=== PATIENT | male | born 1950 | race Caucasian/White ===

== ENCOUNTER 2017-06-08 06:54 | Emergency (ER) | payer MEDICARE ==
[2017-06-08 07:59] LABS: ADD MAN DIFF? NO
[2017-06-08 08:02] LABS: BASO % 1 % (0-3); EOS # 0.1 x10^3/uL (0.0-0.7); EOS % 1 % (0-3); HEMATOCRIT 44.2 % (39.0-53.0); HEMOGLOBIN 14.9 g/dL (13.0-17.5); LYMPH # 0.9 x10^3/uL (1.0-4.8); LYMPH % 11 % (24-48); MEAN CORPUSCULAR HEMOGLOBIN 29 pg (25-35); MEAN CORPUSCULAR HGB CONC 34 g/dL (31-37); MEAN CORPUSCULAR VOLUME 85 fL (79-100); MONO # 0.6 x10^3/uL (0.0-1.1); MONO % 8 % (0-9); NEUT # 6.3 x10^3uL (1.8-7.7); NEUT % 80 % (31-73); PLATELET COUNT 179 x10^3/uL (140-400); RED BLOOD COUNT 5.21 x10^6/uL (4.30-5.70); RED CELL DISTRIBUTION WIDTH 13.6 % (11.5-14.5); WHITE BLOOD COUNT 7.8 x10^3/uL (4.0-11.0)
[2017-06-08 08:11] LABS: ANION GAP 6 (6-14); BLOOD UREA NITROGEN 13 mg/dL (8-26); BUN/CREATININE RATIO 13 (6-20); CALCIUM 8.9 mg/dL (8.5-10.1); CARBON DIOXIDE 31 mmol/L (21-32); CHLORIDE 98 mmol/L (98-107); GFR 74.5; GLUCOSE 107 mg/dL (70-99); POTASSIUM 3.9 mmol/L (3.5-5.1); SODIUM 135 mmol/L (136-145)
[2017-06-08 08:15] LABS: ALBUMIN 3.5 g/dL (3.4-5.0); ALBUMIN/GLOBULIN RATIO 1.1 (1.0-1.7); ALK PHOS 78 U/L (46-116); ALT (SGPT) 23 U/L (16-63); AST (SGOT) 15 U/L (15-37); LIPASE 148 U/L (73-393); TOTAL BILIRUBIN 0.9 mg/dL (0.2-1.0); TOTAL PROTEIN 6.8 g/dL (6.4-8.2)
[2017-06-08] MEDS: ONDANSETRON PF 4 MG/2 ML VIAL. IV (08:33)
[2017-06-08] MEDS: KETOROLAC 30 MG/ML INJ. IV (08:36)
[2017-06-08] MEDS: MORPHINE SULFATE 4 MG/ML DISP.SYRIN. IV (08:39)
[2017-06-08 09:05] LABS: BILIRUBIN,URINE NEGATIVE (NEG); CLARITY,URINE CLEAR; COLOR,URINE YELLOW; GLUCOSE,URINE NEGATIVE (NEG); NITRITE,URINE NEGATIVE (NEG); PROTEIN,URINE NEGATIVE (NEG-TRACE)
[2017-06-08 09:15] LABS: RBC,URINE 0 /HPF (0-2); WBC,URINE 0 /HPF (0-4)
[2017-06-08 09:16] LABS: BACTERIA,URINE 0 /HPF (0-FEW); SQUAMOUS EPITHELIAL CELL,UR FEW /LPF
== END 2017-06-08 10:08 | disposition home or self-care (01) ==
LOC: ER 06:54
DX: R10.30 Lower abdominal pain, unspecified (principal); M54.9 Dorsalgia, unspecified; I10 Essential (primary) hypertension
CPT/HCPCS: 36415; 74176; 80053; 81001; 83690; 85025; 96374; 96375; 99285-25; J1885; J2270; J2405

== ENCOUNTER → 2017-07-15 | Outpatient (CLI) | payer MEDICARE ==
[~2017-07-15] MED LIST: IOHEXOL 180 MG/ML 10 ML VIAL.; methylPREDNISolone ACETATE 40 MG/ML VIAL.; methylPREDNISolone ACETATE 80 MG/ML VIAL.
== END | disposition home or self-care (01) ==
LOC: PNCL 08:27
DX: M51.16 Intervertebral disc disorders with radiculopathy, lumbar region (principal); I10 Essential (primary) hypertension; M19.90 Unspecified osteoarthritis, unspecified site; H91.93 Unspecified hearing loss, bilateral; Z98.890 Other specified postprocedural states; Z79.899 Other long term (current) drug therapy; Z88.5 Allergy status to narcotic agent; Z82.49 Family history of ischemic heart disease and other diseases of the circulatory system; Z82.71 Family history of polycystic kidney
CPT/HCPCS: 62323; J1030; J1040; Q9965

== ENCOUNTER → 2018-06-08 | Outpatient (CLI) | payer MEDICARE ==
[2017-06-08 09:34] VITALS: BP 135/72
[~2018-06-08] MED LIST changes: +GABA-689 PO; +HYDR-3164 PO; -IOHEXOL 180 MG/ML 10 ML VIAL.; +IOHEXOL 180 MG/ML 10 ML VIAL. ONE; +LEVO100T5 PO; +LISI1TAB5 PO; +PROP80CA3 PO; +TIZA4TAB PO; +TRAM50TA PO; +UNABLE MC; +VENL75TA PO; -methylPREDNISolone ACETATE 40 MG/ML VIAL.; +methylPREDNISolone ACETATE 40 MG/ML VIAL. ONE; -methylPREDNISolone ACETATE 80 MG/ML VIAL.; +methylPREDNISolone ACETATE 80 MG/ML VIAL. ONE
--- NOTE | 2018-06-09 00:31 | PAIN ---
DATE OF SERVICE: 06/08/2018 PROGRESS NOTE FOR PAIN CLINIC DIAGNOSES: Lumbar radiculopathy with lumbar degenerative disk disease and lumbar herniated disk. HISTORY OF PRESENT ILLNESS: The patient is a 67-year-old male who returns for followup, last seen on 07/15/2017. The patient had one lumbar epidural steroid injection. He did very well, near 100% improvement after the injection. Pain returned now over the past one month or so in the low back and right lower extremity, now it is in the right side. Initially, it was on the left side. It was across the low back and right posterior gluteus, posterior thigh, posterior calf, posterior ankle and into the foot at times. He reports it is worse with walking, standing or changing positions; better with sitting or lying down. It does not awaken him from sleep at night. Initially, he was increasing his activity, walking, doing work activities, household activities and travelling with greater ease and comfort. Now the pain over the past month has returned, but on the right side is worse than the left. The patient reports it is aching and stabbing, becoming more constant, rates it an 8 on a scale of 10 at its worst, 7 on average and 4 at its least. We did review the patient's MRI scan with him today, showing at L5-S1, moderate left and svsmiolm-vw-hudxxd right foraminal narrowing identified at that level. The patient reports no new changes, no new bowel or bladder incontinence or other complaints. PHYSICAL EXAMINATION: VITAL SIGNS: The patient's blood pressure is 165/94, pulse is 87, respirations 18 and temperature is 97.7 degrees Fahrenheit. Height is 5 feet 11 inches, weighs 220 pounds. GENERAL: The patient is awake, alert, oriented, appropriate, very pleasant demeanor. HEENT EXAMINATION: Shows normocephalic, atraumatic. Extraocular movements are intact and symmetrical. Oral cavity, mucous membranes are moist and pink. Dentition is intact. NECK: Shows anterior throat supple, without palpable lymphadenopathy noted. Swallow reflex is symmetrical. CHEST: Shows normal on inspection. Breath sounds are clear to auscultation bilaterally. HEART: Shows S1, S2 clear. No murmurs auscultated. ABDOMEN: Soft, nontender and nondistended. No palpable organomegaly is noted. No rebound or guarding demonstrated. BACK: Shows spine grossly in the midline. Normal-appearing thoracic kyphosis and some mild flattening of the lumbar lordotic curvature. Lumbar paraspinous muscle shows symmetrical on inspection. On palpation, there is some moderate tenderness diffusely, but only diffusely without radiation. EXTREMITIES: The patient's lower extremities show deep tendon reflexes at 2+ in the patellar and 1+ tendo calcaneus tendons. Motor exam is grossly 5/5 bilaterally with dorsiflexion, extension, quadriceps and hamstring flexion. Peripheral pulses are 1+ posterior tibia. No peripheral edema is noted bilaterally. Options were discussed with the patient. The patient's old chart was reviewed as was his current medication regimen updated. Current review of systems updated today as well. We will proceed with a lumbar epidural steroid injection; today is the first in this series. Risks were again discussed including, but not limited to bleeding, infection, possibility of epidural hematoma, subsequent neurologic compromise, dural puncture, headaches, spinal cord and/or nerve damage, side effects of steroid medication and poor results regarding pain control. The patient understands and wishes to proceed. The patient to return to clinic in approximately 2 weeks for followup. He was counseled on his return appointment, activity level and side effects to be aware of. DIAGNOSES: Lumbar radiculopathy with lumbar degenerative disk disease. PROCEDURE: Lumbar epidural steroid injection in translaminar approach at L5-S1 level using C-arm fluoroscopic guidance under sterile prep and drape using local anesthetic. MEDICATIONS INJECTED: A total of 120 mg Depo-Medrol plus 10 mL of preservative-free normal saline and 2 mL of contrast. CONDITION AT DISCHARGE: Stable. The patient tolerated the procedure well, had no complications. ALBER PALMA MD DR: NEWTON/ezekiel JOB#: [id number] / [id number]
== END | disposition home or self-care (01) ==
LOC: PNCL 11:20
PROVIDERS: ATTEND Anesthesiology
DX: M51.16 Intervertebral disc disorders with radiculopathy, lumbar region (principal)
CPT/HCPCS: 62323; J1030; J1040; Q9965

== ENCOUNTER → 2018-11-08 | Outpatient (CLI) | payer MEDICARE ==
[2017-06-08 09:34] VITALS: BP 135/72
[~2018-11-08] MED LIST changes: +LISI1TAB19 PO; -LISI1TAB5 PO; -TIZA4TAB PO; +TIZA4TAB2 PO
--- NOTE | 2018-11-08 09:29 | PAIN ---
DATE OF SERVICE: 11/08/2018 PROGRESS NOTE FOR PAIN CLINIC DIAGNOSES: Lumbar radiculopathy with lumbar degenerative disk disease and lumbar herniated disk. HISTORY OF PRESENT ILLNESS: The patient is a 68-year-old male who returns for followup status post lumbar epidural steroid injection x 1 on 06/08/2018. The patient did very well with this with about 100% improvement, now about 90% improved and the pain is returning now in the low back and into the right greater than left lower extremity. The patient reports it has been coming back slowly still with some very good pain relief. The patient reports that his legs are becoming more fatigued with activity, walking and standing. Initially, he was doing increased distance walking, work activities, household activities, sleeping much better. Still does not awaken him from sleep at night. The patient reports it is an aching pain in the low back radiating to posterior gluteus, posterior thigh on the right side, posterior calf, some on the left, but mostly in the low back. The patient reports the leg pain comes and goes and the back pain is fairly constant. The patient reports it is aching, dull, some shooting pain in the leg as well. The patient reports his pain in the last week at its worst, is an 8 on a scale of 10, 7 on average and 4 at its least and is a 4 today. The patient reports no new motor or sensory deficits, no new bowel or bladder incontinence or other complaints. PHYSICAL EXAMINATION: VITAL SIGNS: The patient's blood pressure 134/77, pulse 55, respirations are 16, temperature 98.4 degrees Fahrenheit, height is 5 feet 11 inches, weight is 226 pounds. GENERAL: The patient is awake, alert, oriented, appropriate, very pleasant demeanor. HEENT: Head shows normocephalic, atraumatic. Extraocular movements are intact and symmetrical. Oral cavity, mucous membranes are moist and pink. Dentition is intact. NECK: Shows anterior throat supple without palpable lymphadenopathy noted. Swallow reflex symmetrical. CHEST: Shows normal on inspection. Breath sounds clear to auscultation bilaterally. HEART: Shows S1, S2 clear. No murmurs auscultated. ABDOMEN: Soft, nontender, nondistended. No palpable organomegaly is noted. No rebound or guarding demonstrated. BACK: Shows spine grossly in the midline. Normal appearing thoracic kyphosis, some minor flattening of lumbar lordotic curvature. Lumbar paraspinous muscle shows symmetrical on inspection, with palpation shows some moderate tenderness diffusely, but only in the low lumbar distribution, but only diffusely. The patient has good rotational motion of lumbar spine, both laterally as well as extension and flexion without exacerbation of pain. EXTREMITIES: Lower extremities show deep tendon reflexes at 2+ in the patellar, 1+ tendo-calcaneus tendons are equal. Motor exam is strong with 5/5 dorsiflexion and extension and symmetrical. Peripheral pulses are 1+ posterior tibia. No peripheral edema is noted bilaterally. Options were discussed with the patient. The patient's old chart was reviewed as his current medication regimen updated. Current review of systems updated today as well. We will proceed with a lumbar epidural steroid injection today with fluoroscopic guidance. Risks were again discussed including, but not limited to bleeding, infection, possibility of epidural hematoma and subsequent neurological compromise, dural puncture, headaches, spinal cord and/or nerve damage, side effects of steroid medication and poor results regarding pain control. The patient understands and wished to proceed. The patient will return to clinic in approximately 2 weeks for followup. He was counseled on return appointment, activity level and side effects to be aware of. DIAGNOSES: Lumbar radiculopathy with lumbar degenerative disk disease and lumbar herniated disk. PROCEDURE: Lumbar epidural steroid injection, translaminar approach L5-S1 level using C-arm fluoroscopic guidance under sterile prep and drape using local anesthetic. MEDICATION INJECTED: A total of 120 mg Depo-Medrol plus 10 mL of preservative-free normal saline and 2 mL of contrast. CONDITION AT DISCHARGE: Stable. The patient tolerated procedure well, had no complications. ALBER PALMA MD DR: NEWTON/ezekiel JOB#: [id number] / [id number]
== END ==
LOC: PNCL 08:00
PROVIDERS: ATTEND Anesthesiology
DX: M51.16 Intervertebral disc disorders with radiculopathy, lumbar region (principal)
CPT/HCPCS: 62323; J1030; J1040; Q9965

== ENCOUNTER → 2018-11-22 | Outpatient (CLI) | payer MEDICARE ==
[2017-06-08 09:34] VITALS: BP 135/72
--- NOTE | 2018-11-22 09:06 | PAIN ---
DATE OF SERVICE: 11/22/2018 PROGRESS NOTE FOR PAIN CLINIC DIAGNOSES: Lumbar radiculopathy with lumbar degenerative disk disease and lumbar herniated disk. HISTORY OF PRESENT ILLNESS: The patient is a 68-year-old male who returns for followup status post lumbar epidural steroid injection x 2, most recently 11/08/2018. The patient did very well for about 50% improvement overall. First injection about 90% improved, but still doing quite well. The patient reports the pain is still subsiding in the low back, but is still in the bilateral lower extremities, posterior gluteus, posterior thighs, posterior calves, right equal to left essentially at this time, slightly more on the right at times, but most times equal. The patient reports it is better with sitting, lying down, does not awaken him from sleep at night. He was initially increasing distance walking, doing work activities, household activities, lifting his legs are much greater ease and comfort. The patient reports now the pain is returning, but still under fairly good control. Describes as aching, radiating, sometimes constant with walking and standing. The patient reports the pain is 7 on a scale of 10 at its worst, in the past week 5 on average and 3 at its least, and is a 3 today. The patient reports no new motor or sensory deficits, no new bowel or bladder incontinence, or other complaints. PHYSICAL EXAMINATION: VITAL SIGNS: The patient's blood pressure 133/83, pulse 50, respirations 16, temperature 97.5 degrees Fahrenheit, height is 5 feet 11 inches and weight is 218 pounds. GENERAL: The patient is awake, alert, oriented, appropriate, very pleasant demeanor. HEENT: Head shows normocephalic, atraumatic. Extraocular movements are intact and symmetrical. Oral cavity: Mucous membranes are moist and pink. Dentition is intact. NECK: Shows anterior throat supple without palpable lymphadenopathy noted. Swallow reflex symmetrical. CHEST: Shows normal on inspection. Breath sounds are clear to auscultation bilaterally. HEART: Shows S1, S2 clear. No murmurs auscultated. ABDOMEN: Soft, nontender, nondistended. No palpable organomegaly is noted. No rebound or guarding demonstrated. BACK: Shows spine grossly in the midline. Normal-appearing thoracic kyphosis and lumbar lordotic curvature. Lumbar paraspinous muscle shows symmetrical on inspection, on palpation shows some moderate tenderness diffusely, but only diffusely without radiation. The patient has good rotational motion of lumbar spine, both laterally as well as extension and flexion without significant difficulty. EXTREMITIES: The patient's lower extremities show deep tendon reflexes 2+ in the patellar, 1+ tendo-calcaneus tendons. Motor exam is strong with 5/5 dorsiflexion, extension, quadriceps, and hamstring flexion equal. Peripheral pulses are 1+ posterior tibia. No peripheral edema is noted. Options were discussed with the patient. The patient's old chart was reviewed as his current medication regimen updated. Current review of systems updated today as well. We will proceed with a third in the series of lumbar epidural steroid injection today with fluoroscopic guidance. Risks were again discussed including, but not limited to bleeding, infection, possibility of epidural hematoma, subsequent neurologic compromise, dural puncture, headaches, spinal cord and/or nerve damage, side effects of steroid medication, and poor results regarding pain control. The patient understands and wished to proceed. The patient will return to clinic in approximately 2 weeks for followup. He was counseled on return appointment, activity level, and side effects to be aware of. DIAGNOSIS: Lumbar radiculopathy with lumbar degenerative disk disease and lumbar herniated disk. PROCEDURE: Lumbar epidural steroid injection, translaminar approach L5-S1 level using C-arm fluoroscopic guidance under sterile prep and drape using local anesthetic. MEDICATION INJECTED: A total of 120 mg Depo-Medrol plus 10 mL of preservative-free normal saline and 2 mL of contrast. CONDITION AT DISCHARGE: Stable. The patient tolerated the procedure well, had no complications. ALBER PALMA MD DR: NEWTON/ezekiel JOB#: [id number] / [id number]
== END ==
LOC: PNCL 08:15
PROVIDERS: ATTEND Anesthesiology
DX: M51.16 Intervertebral disc disorders with radiculopathy, lumbar region (principal)
CPT/HCPCS: 62323; J1030; J1040; Q9965

== ENCOUNTER → 2019-01-22 | Day surgery (SDC) | payer MEDICARE ==
[~2019-01-22] MED LIST changes: -IOHEXOL 180 MG/ML 10 ML VIAL. ONE; +IV RINGERS,LACTATED 1000ML 1,000 ML IV SCH; +LIDOCAINE 2% PF 5 ML VIAL. ONE; +PROPOFOL 20 ML IV ONE; +VARD20TA2 PO; -methylPREDNISolone ACETATE 40 MG/ML VIAL. ONE; -methylPREDNISolone ACETATE 80 MG/ML VIAL. ONE
--- NOTE | 2019-01-22 14:12 | PDOC4 ---
PROCEDURE Procedure Colonoscopy/biopsy Indication: H/o polyps, FH CRC in first-degree relative. Meds: per anesthesia Findings: FIGUEROA; smooth, enlarged prostate. --'Scope advanced to cecum. Prep good. Mucosa normal. 3 x 5 mm polyp ~mid- transverse, biopsied off. No other polyps, diverticula, etc. IH's on retroflex, small. Briseyda. well. IMP: One polyp. Internal hemorrhoids. REC: Await path. Resume meds, diet at before. F/u with me in 2 weeks. Repeat exam in 5 years unless otherwise dictated by pathology. BERNADINE CLARK MD Jan 22, 2019 14:12
[2019-01-22 14:28] VITALS: BP 158/92
--- NOTE | 2019-01-23 14:06 | PATHOLOGY ---
[facility] Accession Number: [id number] . 01 Material submitted: . colon - POLYP IN TRANSVERSE COLON. Modifiers: transverse . 01 Clinical history: . History of colon polyps, family history of colon cancer . 02 Diagnosis: Colon biopsies, transverse colon polyp: - Tubular adenoma. (JPM:joby; 01/23/2019) S 01/23/2019 1250 Local . 02 Comment: There is no high grade dysplasia or evidence of malignancy. . 02 Electronically signed: . Flaco Navarro MD, Pathologist NPI- [id number] . 01 Gross description: . The specimen is received in formalin, labeled "Boris Veras, polyp in transverse colon", are four irregular segments of eason soft tissue measuring 0.7 x 0.5 x 0.1 cm in greatest dimension. Entirely submitted in A1. ([facility]; 01/22/2019) [facility] 01/22/2019 1943 Local . 02 Pathologist provided ICD-10: D12.3 . 02 CPT . 087090 Specimen Comment: A courtesy copy of this report has been sent to [phone], [phone] Specimen Comment: [id number] Specimen Comment: Report sent to / DR CALIXTO Specimen Comment: A duplicate report has been generated due to demographic updates. Performed at: 01 [facility] [address] [address] [facility] [address], [place] [id number] MD Jerzy Cruz MD Phone: [phone] Performed at: 02 [facility] [address] [place], [place] [id number] MD Flaco Navarro MD Phone: [phone]
== END ==
LOC: ENDOS 13:03
PROVIDERS: ATTEND Internal Medicine Gastroenterology
DX: Z12.11 Encounter for screening for malignant neoplasm of colon (principal); D12.3 Benign neoplasm of transverse colon; K64.0 First degree hemorrhoids; N40.0 Benign prostatic hyperplasia without lower urinary tract symptoms; I10 Essential (primary) hypertension; G47.30 Sleep apnea, unspecified; F32.9 Major depressive disorder, single episode, unspecified; M79.7 Fibromyalgia; Z80.0 Family history of malignant neoplasm of digestive organs; Z86.010 Personal history of colon polyps; Z88.6 Allergy status to analgesic agent; Z87.39 Personal history of other diseases of the musculoskeletal system and connective tissue; Z98.52 Vasectomy status; Z98.890 Other specified postprocedural states
CPT/HCPCS: 45380; 88305; J2001; J2704

== ENCOUNTER → 2019-05-03 | Outpatient (CLI) | payer MEDICARE ==
[2019-01-22 14:28] VITALS: BP 158/92
[~2019-05-03] MED LIST changes: +IOHEXOL 180 MG/ML 10 ML VIAL. ONE; -IV RINGERS,LACTATED 1000ML 1,000 ML IV SCH; -LIDOCAINE 2% PF 5 ML VIAL. ONE; -PROPOFOL 20 ML IV ONE; +methylPREDNISolone ACETATE 40 MG/ML VIAL. ONE; +methylPREDNISolone ACETATE 80 MG/ML VIAL. ONE
--- NOTE | 2019-05-03 09:14 | PAIN ---
DATE OF SERVICE: 05/03/2019 PROGRESS NOTE FOR PAIN CLINIC DIAGNOSES: Lumbar radiculopathy with lumbar degenerative disk disease with lumbar herniated disk. HISTORY OF PRESENT ILLNESS: The patient is a 68-year-old male who returns for followup status post previous lumbar epidural steroid injections, last seen 11/22/2018. The patient did very well after the last injection with about 90% improvement for the first 2 months. The patient reports pain is returning now in the low back and right lower extremity, posterior gluteus, posterior thigh, posterior calf, worse with walking, standing, changing positions. The patient reports about 3-4 months has been bothering him, but no motor or sensory deficits, no new bowel or bladder incontinence. The patient rates the pain as a 9 on a scale of 10 at its worst over the past week, 8 on average, 6 at its least and is an 8 today across the low back bilaterally into the right lower extremity as described. The patient reports it is worse with standing, walking, changing positions. Initially, he was doing much better with distance walking, doing household activities, traveling with greater ease and comfort, sleeping better. Still sleeps well at night, does not have as much pain with sitting or lying down as just with walking and standing. The patient reports no new motor or sensory deficits, no new bowel or bladder incontinence. PHYSICAL EXAMINATION: VITAL SIGNS: The patient's blood pressure 139/83, pulse 53, respirations 18, temperature 97.3 degrees Fahrenheit, height is 5 feet 11 inches, weight is 226 pounds. GENERAL: The patient is awake, alert, oriented, appropriate, very pleasant demeanor. HEENT: Head shows normocephalic, atraumatic. Extraocular movements are intact and symmetrical. Oral cavity: Mucous membranes moist and pink. Dentition is intact. NECK: Shows anterior throat supple without palpable lymphadenopathy noted. Swallow reflex symmetrical. CHEST: Shows normal on inspection. Breath sounds are clear bilaterally. HEART: Shows S1, S2 clear. No murmurs auscultated. ABDOMEN: Soft, nontender, nondistended. No palpable organomegaly is noted. No rebound or guarding demonstrated. BACK: Shows spine grossly in the midline. Normal-appearing, no thoracic kyphosis, some minor flattening of lumbar lordotic curvature. Lumbar paraspinous muscle shows symmetrical on inspection, with palpation shows some moderate tenderness diffusely bilaterally going diffusely in the low lumbar distribution bilaterally without radiation, no trigger points, no asymmetry. The patient has good rotational motion of lumbar spine, both laterally as well as extension and flexion without significant increase in pain. EXTREMITIES: Lower extremities show deep tendon reflexes at 2+ in the patellar, 1+ tendo-calcaneus tendons. Motor exam is strong with 5/5 dorsiflexion, extension, quadriceps and hamstring flexion. Peripheral pulses are 1+ posterior tibia. No peripheral edema is noted bilaterally. Options were discussed with the patient. The patient's old chart was reviewed as his current medication regimen updated. Current review of systems updated today as well. We will proceed with a lumbar epidural steroid injection today with fluoroscopic guidance. Risks were again discussed including, but not limited to bleeding, infection, possibility of epidural hematoma, subsequent neurological compromise, dural puncture, headaches, spinal cord and/or nerve damage, side effects of steroid medication and poor results regarding pain control. The patient understands and wished to proceed. The patient will return to clinic in approximately 2 weeks for followup. She was counseled on return appointment, activity level and side effects to be aware of. DIAGNOSES: Lumbar radiculopathy with lumbar degenerative disk disease with lumbar herniated disk. PROCEDURE: Lumbar epidural steroid injection, translaminar approach L5-S1 level using C-arm fluoroscopic guidance under sterile prep and drape using local anesthetic. MEDICATION INJECTED: A total of 120 mg Depo-Medrol plus 10 mL of preservative-free normal saline and 2 mL of contrast. CONDITION AT DISCHARGE: Stable. The patient tolerated the procedure well, had no complications. ALBER PALMA MD DR: NEWTON/ezekiel JOB#: [id number] / [id number]
== END ==
LOC: PNCL 07:44
PROVIDERS: ATTEND Anesthesiology
DX: M51.16 Intervertebral disc disorders with radiculopathy, lumbar region (principal)
CPT/HCPCS: 62323; J1030; J1040; Q9965

== ENCOUNTER → 2019-06-29 | Outpatient (CLI) | payer MEDICARE ==
[2019-01-22 14:28] VITALS: BP 158/92
[~2019-06-29] MED LIST changes: -IOHEXOL 180 MG/ML 10 ML VIAL. ONE; -methylPREDNISolone ACETATE 40 MG/ML VIAL. ONE; -methylPREDNISolone ACETATE 80 MG/ML VIAL. ONE
[2019-06-29] MEDS: REGADENOSON 0.4 MG/5 ML DISP.SYRIN. IV ONE (10:08)
--- NOTE | 2019-06-29 12:10 | RAD ---
MR#: [id number] Date of Study: 06/29/2019 Ordering Physician: BERNADINE CALIXTO, Referring Physician: ZOË SAENZ Tech: KYRIE Mccollum APPROVED REPORT Test Type: Pharmacological Stress Nurse/Tech: Lindsey Pederson RN Test Indications: Chest pressure (midline) Cardiac History: Family history, Hypertension Medications: See Electronic Medical Record Medical History: See Electronic Medical Record Resting ECG: SR Resting Heart Rate: 66 bpm Resting Blood Pressure: 154/69mmHg Pretest Chest Pain: Atypical angina Nurse/Tech Notes S1,S2 and lungs clear to auscultation. Patient states he has been having chest pressure in the center of his chest off and on. Patient attempted a treadmill stress test and was unable to keep going shashi use of the incline (Heart rate didn't reach desired max). Patient switched to Lexiscan test. Consent: The procedure was explained to the patient in lay terms. Informed consent was witnessed. Moncho eout was entered into [email or web address]. History and Stress Test performed by KYRIE Mccollum Pharm. Details Pharmacologic stress testing was performed using 0.4mg per 5ml of regadenoson given intravenously ove r 7-10 seconds. Stress Symptoms Patient stated he had 5/10 chest pressure at the start of the stress test/Lexiscan. Pressure came do wn slightly to a 4/10 by end of study. Dyspnea. POST EXERCISE Reason for Termination: Infusion complete Target HR: No Max HR: 79 bpm 62% of Maximum Predicted HR: 127 bpm Max Blood Pressure: 152/65mmHg Blood Pressure response to exercise: Normal blood pressure response during stress. Heart Rate response to exercise: WNL Chest Pain: Yes. see note above. Arrhythmia: No. ST Change: No. INTERPRETATION Stress EKG Conclusion: No evidence of stress induced EKG changes. Imaging Protocol IMAGE PROTOCOL: Rest Tc-99m/stress Tc-99m 1 day Rest: Stress: Viability: Radiopharm.Tc99m EoqtxnerdTm82b Sestamibi Dvpj49pSh 33mCi Duration 15min. 10min. Img Date 06/29/2019 06/29/2019 Rest Admin Site:IV - Left AntecubitalAdministrator:KYRIE Mccollum Stress Admin Site: IV - Left AntecubitalAdministrator: KYRIE Mccollum STRESS DATA End Diast. Vol.113.0mlAv. Heart Rate60.0bpm End Syst. Vol.30.0mlCO Index BSA0.0L/min Myocardial Jjcx212.0gEject. Vjocmpgn94.0% Stress Rates Pk. Fill Rate2.76EDV/secLVtime Pk. Fill 184.38msec Pk. Empty Rate3.00ESV/secLVtime Pk. Eyxvv978.18msec 03/09 Pk. Fill1.41EDV/sec Stress Scores Regional WT0.00Summed WT0.00 Regional WM0.00Summed WM0.00 The rest and stress images show normal perfusion, normal contraction and thickening. LV Perf. Quant 17 Seg. SSS0.00 17 Seg. SRS1.00 17 Seg. SDS0.00 Stress Defect Extent (% LAD)0.00Rest Defect Extent (% LAD)0.00Rev. Defect Extent (% LAD)0.00 Stress Defect Extent (% LCX) 0.00Rest Defect Extent (% LCX)0.00Rev. Defect Extent (% LCX)0.00 Stress Defect Extent (% RCA)0.00Rest Defect Extent (% RCA)0.00Rev. Defect Extent (% RCA)0.00 Stress Defect Extent (% NHUNG)0.00Rest Defect Extent (% NHUNG)0.00Rev. Defect Extent (% NHUNG)0.00 Other Information Quality:Good Risk Assessment: Low Risk Conclusion 1. No evidence of EKG changes with stress testing. 2. Normal perfusion at stress/rest. 3. Low risk study. 4. EF > 60%. Signed by : Chidi Le, Electronically Approved : 06/29/2019 12:09:52
== END | disposition home or self-care (01) ==
LOC: NM 07:39
PROVIDERS: ATTEND Internal Medicine
DX: R07.89 Other chest pain (principal); I10 Essential (primary) hypertension
CPT/HCPCS: 78452; 93017; A9500; J2785

== ENCOUNTER → 2019-12-03 | Outpatient (CLI) | payer MEDICARE ==
[2019-01-22 14:28] VITALS: BP 158/92
[~2019-12-03] MED LIST changes: +AMLO5TAB10 PO; +IOHEXOL 180 MG/ML 10 ML VIAL. ONE; -LISI1TAB19 PO; +LISI1TAB37 PO; +PANT40TA77 PO; +methylPREDNISolone ACETATE 40 MG/ML VIAL. ONE; +methylPREDNISolone ACETATE 80 MG/ML VIAL. ONE
--- NOTE | 2019-12-03 09:03 | PDOC ---
Progress Note - Pain Clinic Date of Service: DOS: DATE: 12/03/19 TIME: 09:00 Diagnosis: Dx: Lumbar radiculopathy with lumbar degenerative disc disease and lumbar herniated disc History or Present Illness: HPI: 69-year-old male returns follow-up status post lumbar epidural steroid injection x1 last seen May 03, 2019. Patient works very well at this 90% improvement now with pain returning over the past few weeks in the low back and right lower extremity posterior gluteus posterior thigh posterior calf to the level of the ankle patient reports no loss of motor function but significant fatigability with right lower extremity. Patient reports is a 9 on scale 10 is worse with the past week 7 on average for its least is a 7 today patient which is aching and sharp in quality constant in the back and the radiating to the leg on and off in intensity patient reports no new motor or sensory deficits no new bowel or bladder incontinence or other complaints. Physical Exam: VS: Blood pressure is 146/78 pulse 61 respirations 18 temperature 90.1 F height is 5 foot 11 inches weight is 217 pounds PE: PHYSICAL EXAMINATION: GENERAL: The patient is awake, alert, oriented, appropriate, very pleasant demeanor HEENT: Shows normocephalic, atraumatic. Extraocular movements are intact and symmetrical. Oral cavity: Mucous membranes moist and pink. NECK: Shows anterior throat supple without palpable lymphadenopathy noted. Swallow reflex symmetrical. CHEST: Shows normal on inspection. Breath sounds are clear bilaterally, no rales rhonchi or wheezes auscultated. HEART: Shows S1, S2 clear. No murmurs auscultated. ABDOMEN: Soft, nontender, nondistended. No palpable organomegaly is noted. No rebound or guarding demonstrated. BACK: Shows spine grossly in the midline. Normal-appearing cervical lordotic curvature. There is slightly increased thoracic kyphosis, some minor flattening of the lumbar lordotic curvature. Lumbar paraspinous muscles show symmetrical on inspection, on palpation shows some moderate tenderness diffusely throughout the upper, middle and lower distribution of the paraspinous muscles bilaterally, but without specific trigger points, without radiation of pain. The patient has good rotational motion of the lumbar spine, both laterally as well as extension and flexion without significant difficulty. No tenderness over the spinous processes, sacrum or sacroiliac regions. EXTREMITIES: Lower extremities show deep tendon reflexes 2+ in the patellar and tendo calcaneus tendons. Motor exam is 5 on a scale of 5 with right dorsiflexion, extension, quadriceps and hamstring flexion and 5/5 on the left. Peripheral pulses are 1+ posterior tibial. No peripheral edema is noted bilaterally. Lower extremities are warm and dry to touch, equal in color and appearance. SKIN: Shows warm and dry, good turgor. No edema. No sores, rashes or bruising throughout. Procedure: Procedure: Options were discussed with the patient. Patient chart was reviewed his current medication regimen updated current review of systems updated today as well. We will proceed with a second in the series lumbar epidural steroid injection today with fluoroscopic guidance. Risks were discussed including but not limited to: Bleeding, infection, possibility of epidural hematoma and subsequent neurological compromise, dural puncture, headaches, spinal cord and/or nerve damage, side effects of steroid medication, and poor results regarding pain control. Patient understands wished to proceed. Patient return to clinic in approximate 2 weeks for follow-up was counseled as to return appointment activity level and side effects to be aware of. Medication Injected: Med Injected: Procedure is lumbar epidural steroid injection under local anesthetic using sterile prep and drape at the L5-S1 level using C-arm fluoroscopic guidance in both AP and lateral views medications injected is 120 mg Depo-Medrol + 10 mL preservative-free normal saline and 2 mL contrast- condition at discharge is stable patient tolerated procedure well had no complications. Condition at Discharge: Condition at Discharge: Condition at discharge is stable patient tolerated procedure well had no complications. ALBER PALMA MD Dec 03, 2019 09:03
== END | disposition home or self-care (01) ==
LOC: PNCL 08:16
PROVIDERS: ATTEND Anesthesiology
DX: M51.16 Intervertebral disc disorders with radiculopathy, lumbar region (principal); I10 Essential (primary) hypertension; F32.9 Major depressive disorder, single episode, unspecified; Z79.899 Other long term (current) drug therapy
CPT/HCPCS: 62323; J1030; J1040; Q9965

== ENCOUNTER → 2020-06-09 | Outpatient (CLI) | payer MEDICARE ==
[2019-01-22 14:28] VITALS: BP 158/92
[~2020-06-09] MED LIST changes: +AMLO-186 PO; -AMLO5TAB10 PO; +CHOL500050 PO; +MULT-245 PO; +NIAC500T51 PO; +OMEG100021 PO
--- NOTE | 2020-06-09 09:11 | PDOC ---
Progress Note - Pain Clinic Date of Service: DOS: DATE: 06/09/20 TIME: 09:08 Diagnosis: Dx: Lumbar to colopathy with lumbar degenerative disease and lumbar herniated disc History or Present Illness: HPI: 69-year-old male returns follow-up status post lumbar epidural steroid injection x2 most recently December 03, 2019. Patient with about 90% improvement in the pain in his low back and right lower extremity for about 5 months. Patient reports pain returning now over the past month or so in the low back and right lower extremity posterior gluteus posterior thigh posterior calf and ankle as well as across the low back bilaterally patient reports is an 8 on scale 10 is worse over the past week 8 on average 8 its least is an 8 today patient reports its aching and stabbing radiating before that was doing much better with distance walking doing household activities travel with greater ease and comfort sleeping better at night patient reports still is not awakening from sleep at night. Patient reports is worse with standing and walking changing positions. Patient reports no new motor or sensory deficits no new bowel or bladder incontinence or other complaints. Physical Exam: VS: Blood pressure is 137/88 pulse 63 respirations are 16 temperature 98.3 F height is 5 foot 11 inches weight is 224 pounds PE: PHYSICAL EXAMINATION: GENERAL: The patient is awake, alert, oriented, appropriate, very pleasant demeanor HEENT: Shows normocephalic, atraumatic. Extraocular movements are intact and symmetrical. Oral cavity: Mucous membranes moist and pink. NECK: Shows anterior throat supple without palpable lymphadenopathy noted. Swallow reflex symmetrical. CHEST: Shows normal on inspection. Breath sounds are clear bilaterally, no rales or rhonchi. HEART: Shows S1, S2 clear. No murmurs auscultated. ABDOMEN: Soft, nontender, nondistended, obese. No palpable organomegaly is noted. BACK: Shows spine grossly in the midline. Normal-appearing cervical lordotic curvature. There is slightly increased thoracic kyphosis, some minor flattening of the lumbar lordotic curvature. Lumbar paraspinous muscles show symmetrical on inspection, on palpation shows some moderate tenderness diffusely throughout the upper, middle and lower distribution of the paraspinous muscles without specific trigger points, without radiation of pain. The patient has good rotational motion of the lumbar spine, both laterally as well as extension and flexion without significant difficulty. No tenderness over the spinous pr ocesses, sacrum or sacroiliac regions. EXTREMITIES: Lower extremities show deep tendon reflexes 2+ in the patellar and tendo calcaneus tendons. Motor exam is 5 on a scale of 5 with right dorsiflexion, extension, quadriceps and hamstring flexion and 5/5 on the left. Peripheral pulses are 1+ posterior tibial. No peripheral edema is noted bilaterally. Lower extremities are warm and dry to touch, equal in color and appearance. SKIN: Shows warm and dry, good turgor. No edema. No sores, rashes or bruising throughout. Procedure: Procedure: Options discussed with the patient. Patient chart reviews his current medication regimen updated current review of systems updated today as well. We will proceed with a lumbar epidural steroid injection stable fluoroscopic guidance. Risks were discussed including but not limited to: Bleeding, infection, possibility of epidural hematoma and subsequent neurological compromise, dural puncture, headaches, spinal cord and/or nerve damage, side effects of steroid medication, and poor results regarding pain control. Patient understands and wished to proceed. Patient will return to clinic in approximately 2 weeks for follow-up, was counseled as to return appointment activity level and side effects to be aware of. Medication Injected: Med Injected: Procedure is lumbar epidural steroid injection under local anesthetic using sterile prep and drape at the L5-S1 level using C-arm fluoroscopic guidance in both AP and lateral views medications injected is 120 mg Depo-Medrol + 10 mL preservative-free normal saline and 2 mL contrast- condition at discharge is stable patient tolerated procedure well had no complications. Condition at Discharge: Condition at Discharge: Condition at discharge stable, patient already procedure well and had no complications. ALBER PALMA MD Jun 09, 2020 09:11
--- NOTE | 2020-06-09 09:11 | PDOC4 ---
PROCEDURE Procedure Patient was consented for lumbar epidural steroid injection. Risks were dis cussed including but not limited to: Bleeding, infection, possibility of epidural hematoma and subsequent neurological compromise, dural puncture, headaches, spinal cord and/or nerve damage, side effects of steroid medication, and poor results regarding pain control. Patient understands and wished to proceed. Procedure is lumbar epidural steroid injection under local anesthetic using sterile prep and drape at the L5-S1 level using C-arm fluoroscopic guidance in both AP and lateral views medications injected is 120 mg Depo-Medrol + 10 mL preservative-free normal saline and 2 mL contrast- condition at discharge is stable patient tolerated procedure well had no complications. ALBER PALMA MD Jun 09, 2020 09:11
== END | disposition home or self-care (01) ==
LOC: PNCL 08:11
PROVIDERS: ATTEND Anesthesiology
DX: M51.36 Other intervertebral disc degeneration, lumbar region (principal); I10 Essential (primary) hypertension; G47.30 Sleep apnea, unspecified; E03.9 Hypothyroidism, unspecified; F32.9 Major depressive disorder, single episode, unspecified; Z79.899 Other long term (current) drug therapy; Z98.890 Other specified postprocedural states; Z88.6 Allergy status to analgesic agent
CPT/HCPCS: 62323; J1030; J1040; Q9965

== ENCOUNTER → 2020-08-20 | Outpatient (CLI) | payer MEDICARE ==
[2019-01-22 14:28] VITALS: BP 158/92
--- NOTE | 2020-08-20 11:03 | PDOC ---
Progress Note - Pain Clinic Date of Service: DOS: DATE: 08/20/20 TIME: 11:00 Diagnosis: Dx: Lumbar radiculopathy with lumbar degenerative disc disease and lumbar herniated disc History or Present Illness: HPI: 70-year-old male returns follow-up status post lumbar epidural steroid injection x1 last seen June 09, 2020. Patient reports about 80% improvement for the first 3 months now the pain is returning in the low back and right lower extremity as it was previously posterior gluteus posterior lateral thigh posterior calf and lateral calf as well with walking standing change positions. Patient reports initially was doing much better with work activities household activities walking greater distances sleeping much better at night still does not awaken from sleep at night feels much better with sitting or laying down. Patient reports no new motor or sensory deficits no new bowel or bladder incontinence or other complaints. Patient rates his pain as a 10 on scale 10 is worse over the past week 9 on average 3 at its least and is a 5 today. Patient describes a sharp and stabbing can be severe and unbearable with walking and standing. Physical Exam: VS: Blood pressure is 134/76 pulse 57 respirations are 18 is 5 foot 11 inches weight is 215 pounds PE: PHYSICAL EXAMINATION: GENERAL: The patient is awake, alert, oriented, appropriate, very pleasant de meanor HEENT: Shows normocephalic, atraumatic. Extraocular movements are intact and symmetrical. NECK: Shows anterior throat supple without palpable lymphadenopathy noted. Swallow reflex symmetrical. CHEST: Shows normal on inspection. Breath sounds are clear bilaterally. HEART: Shows S1, S2 clear. No murmurs auscultated. ABDOMEN: Soft, nontender, nondistended, obese. No palpable organomegaly is noted. BACK: Shows spine grossly in the midline. Normal-appearing cervical lordotic curvature. There is slightly increased thoracic kyphosis, some minor flattening of the lumbar lordotic curvature. Lumbar paraspinous muscles show symmetrical on inspection, on palpation shows some moderate tenderness diffusely throughout the upper, middle and lower distribution of the paraspinous muscles without specific trigger points, without radiation of pain. The patient has good rotational motion of the lumbar spine, both laterally as well as extension and flexion without significant difficulty. EXTREMITIES: Lower extremities show deep tendon reflexes 2+ in the patellar and tendo calcaneus tendons. Motor exam is 5 on a scale of 5 with right dors iflexion, extension, quadriceps and hamstring flexion and 5/5 on the left. Peripheral pulses are 1 posterior tibial. No peripheral edema is noted bilaterally. Lower extremities are warm and dry to touch, equal in color and appearance. SKIN: Shows warm and dry, good turgor. No edema. No sores, rashes or bruising throughout. Procedure: Procedure: Options were discussed with the patient. Patient chart reviews his current medication regimen updated current review of systems updated today as well. We will proceed with a second in a series lumbar epidural steroid injection stable fluoroscopic guidance. Risks were discussed including but not limited to: Bleeding, infection, possibility of epidural hematoma and subsequent юлия rological compromise, dural puncture, headaches, spinal cord and/or nerve damage, side effects of steroid medication, and poor results regarding pain control. Patient understands and wished to proceed. She will return to clinic in approximate 2 weeks for follow-up, was counseled as return appointment, activity level, and side effects to be aware of. Medication Injected: Med Injected: Procedure is lumbar epidural steroid injection under local anesthetic using sterile prep and drape at the L5 S1 level using C-arm fluoroscopic guidance in both AP and lateral views medications injected is 120 mg Depo-Medrol +10mL preservative-free normal saline and 2 mL contrast- condition at discharge is stable patient tolerated procedure well had no complications. Condition at Discharge: Condition at Discharge: Patient condition at discharge stable patient tolerated procedure well and had no complications. ALBER PALMA MD Aug 20, 2020 11:03
--- NOTE | 2020-08-20 11:03 | PDOC4 ---
PROCEDURE Procedure Patient was consented for lumbar epidural steroid injection. Risks were dis cussed including but not limited to: Bleeding, infection, possibility of epidural hematoma and subsequent neurological compromise, dural puncture, headaches, spinal cord and/or nerve damage, side effects of steroid medication, and poor results regarding pain control. Patient understands and wished to proceed. Procedure is lumbar epidural steroid injection under local anesthetic using sterile prep and drape at the L5-S1 level using C-arm fluoroscopic guidance in both AP and lateral views medications injected is 120 mg Depo-Medrol +10mL preservative-free normal saline and 2 mL contrast- condition at discharge is stable patient tolerated procedure well had no complications. ALBER PALMA MD Aug 20, 2020 11:03
== END | disposition home or self-care (01) ==
LOC: PNCL 10:09
PROVIDERS: ATTEND Anesthesiology
DX: M51.16 Intervertebral disc disorders with radiculopathy, lumbar region (principal); I10 Essential (primary) hypertension; G47.30 Sleep apnea, unspecified; E03.9 Hypothyroidism, unspecified; F32.9 Major depressive disorder, single episode, unspecified; Z79.899 Other long term (current) drug therapy; Z98.890 Other specified postprocedural states; Z88.6 Allergy status to analgesic agent
CPT/HCPCS: 62323; J1030; J1040; Q9965

== ENCOUNTER → 2021-01-16 | Outpatient (CLI) | payer MEDICARE ==
[2019-01-22 14:28] VITALS: BP 158/92
[~2021-01-16] MED LIST changes: -IOHEXOL 180 MG/ML 10 ML VIAL. ONE; +TIZA-75 PO; -TIZA4TAB2 PO; -methylPREDNISolone ACETATE 40 MG/ML VIAL. ONE; -methylPREDNISolone ACETATE 80 MG/ML VIAL. ONE
--- NOTE | 2021-01-16 10:56 | KCIC ---
Examination: CT of the abdomen pelvis without contrast HISTORY: History of periumbilical pain COMPARISON: None available Technique: Axial CT images of abdomen pelvis were performed without contrast. Coronal and sagittal re formats are performed Exposure: One or more of the following individualized dose reduction techniques were utilized for thi s examination: 1. Automated exposure control 2. Adjustment of the mA and/or kV according to patient size 3. Use of iterative reconstruction technique FINDINGS: The bibasilar lungs are clear. No evidence of free air identified in the abdomen. Examinati on limited lack of IV contrast. Diffuse decreased attenuation within the liver likely hepatic steatos is. The spleen, adrenals grossly appears unremarkable. The gallbladder is mildly distended. The stoma ch is mildly distended. The visualized pancreas grossly appears unremarkable. Small bowel is nondilat ed. Feces and gas noted identified in the colon. Mild fat stranding identified in the mesenteric root, nonspecific. No evidence of intrauterine system calculi or hydronephrosis identified. There is a cystic structure identified in the right kidney jorge suring 1.2 cm and measuring 3.6 Hounsfield units probably a cyst. There is small umbilical hernia identified measuring 2.0 x 1.9 cm containing the omentum within. Small amount of free fluid identified in the pelvis. The urinary bladder is mildly distended. Moderat e degenerative changes lumbar spine. IMPRESSION: 1. Small umbilical hernia identified measuring 2.0 x 1.9 cm containing the omentum within. 2. Hepatic steatosis. 3. 1.2 cm cystic structure identified in the right kidney probably a cyst. 4. Small amount of free fluid identified in the pelvis, nonspecific. 5. Mild fat stranding identified in the mesenteric root, nonspecific. Electronically signed by: Graham Pina MD (01/16/2021 10:53 AM) [id number]
== END ==
LOC: KCIC CT 09:49
PROVIDERS: ATTEND Internal Medicine
DX: K76.0 Fatty (change of) liver, not elsewhere classified (principal); N28.1 Cyst of kidney, acquired; K42.9 Umbilical hernia without obstruction or gangrene; K82.8 Other specified diseases of gallbladder; K31.89 Other diseases of stomach and duodenum
CPT/HCPCS: 74176

== ENCOUNTER 2021-02-11 12:29 | Day surgery (SDC) | payer MEDICARE ==
[~2021-02-11] VITALS: Ht 180.3 cm; Wt 98.0 kg
[~2021-02-11 12:29] MED LIST changes: +BUPIVACAINE-EPI 0.5% 30 ML VIAL KIT. ONE; +IV RINGERS,LACTATED 1000ML 1,000 ML IV SCH; +LEVO75TA5 PO; +PROCHLORPERAZINE 10 MG/2 ML VIAL. IVP PRN; +fentaNYL PF VIAL 100 MCG/2 ML VIAL IVP PRN
[2021-02-11 13:02] VITALS: BP 168/77
[2021-02-11] MEDS ORDERED: PROPOFOL 10 MG/ML (20ML) VIAL. IV ONE (13:53)
[2021-02-11] MEDS ORDERED: DEXAMETHASONE SOD PHOS 4 MG/ML VIAL ONE (13:53)
[2021-02-11] MEDS ORDERED: ONDANSETRON PF 4 MG/2 ML VIAL. ONE (13:53)
[2021-02-11] MEDS ORDERED: ROCURONIUM 50 MG/5 ML VIAL. ONE (13:54)
[2021-02-11] MEDS ORDERED: NEOSTIGMINE METHYLSULFATE 5 MG/5 ML SYRINGE. ONE (14:59)
[2021-02-11] MEDS ORDERED: GLYCOPYRROLATE 1 MG/5 ML VIAL. ONE (14:59)
--- NOTE | 2021-02-11 15:14 | PDOC4 ---
Operative Note Operative Note Operative Note: Preoperative Diagnosis: Umbilical hernia Postoperative Diagnosis: Same Procedure: Umbilical hernia repair with mesh Surgeon: Andrew Anesthetist: FINESSE Godoy; Samuel Gamez MS4 Anesthesia: General EBL: 5 mL Specimen: None Drains: None Complications: None Indication: The patient is a 70-year-old male who is referred with an umbilical hernia. He was offered surgical repair. The risks of surgery were discussed which include bleeding, infection, recurrence, pain, anesthetic risk, potential need for additional surgery procedure. He understands and would like to proceed. Description: The patient was taken the operating room and placed supine on the operating table. General anesthesia was performed. The abdomen was prepped with ChloraPrep and draped with sterile towels, sheets, and an Ioban. A curved infraumbilical incision was made the skin with a scalpel. Cautery dissection was carried down to the fascia. The umbilical tissue was elevated off the fascia exposing a small hernia defect. A preperitoneal plane was developed with blunt dissection circumferentially. A small Ventralex ST mesh was placed in this preperitoneal plane. The mesh was sutured into position using 0 Prolene in a horizontal mattress fashion. The fascial edges were closed over the mesh with 0 Prolene. The umbilicus was secured back to the fascia with 2-0 Vicryl. The subcutaneous tissue was approximated with 3-0 Vicryl. Skin was closed with 4-0 Monocryl. The skin was infiltrated with half percent Marcaine with epinephrine and Steri-Strips and a sterile dressing were applied. The patient tolerated the procedure well and was sent to the recovery room in stable condition. At the end of the case all counts were correct. ESE MENDEZ MD Feb 11, 2021 15:14
[2021-02-11] MEDS ORDERED: HYDR-2761 PO (15:16)
--- NOTE | 2021-02-11 15:17 | DISCH ---
DISCHARGE INSTRUCTIONS Condition on Discharge Condition on Discharge: Stable Activity After Discharge Activity Instructions for Disc: Other, see below (No lifting over 20 lbs X 4 weeks) Diet after Discharge Diet after Discharge: Regular Wound Incision Care Wound/Incision Care: Other, see below (Keep dressing clean and dry X 72 hours, may then remove and shower; keep abdominal binder on while ambulating X 4 weeks) Follow-Up Follow up with: Dr Mendez in office in 2 weeks, call for appointment [phone] ESE MENDEZ MD Feb 11, 2021 15:17
[2021-02-11] MEDS ORDERED: fentaNYL PF VIAL 100 MCG/2 ML VIAL ONE (15:39)
[2021-02-11] MEDS ORDERED: PROCHLORPERAZINE 10 MG/2 ML VIAL. ONE (15:43)
[2021-02-11] MEDS ORDERED: HYDROcodone/APAP 5/325MG 1 TAB TABLET PO ONE ×2 (15:45)
[2021-02-11] MEDS ORDERED: PROCHLORPERAZINE 10 MG/2 ML VIAL. IV PRN (15:45)
[2021-02-11] MEDS: fentaNYL PF VIAL 100 MCG/2 ML VIAL IVP PRN ×2 (15:48→15:56)
[2021-02-11] MEDS ORDERED: PROCHLORPERAZINE 10 MG/2 ML VIAL. IVP PRN (15:49)
[2021-02-11 16:04] VITALS: BP 137/73
== END 2021-02-11 17:01 | disposition home or self-care (01) ==
LOC: SURG 12:29
PROVIDERS: ATTEND Surgery
DX: K42.9 Umbilical hernia without obstruction or gangrene (principal); I10 Essential (primary) hypertension; G47.30 Sleep apnea, unspecified; K21.9 Gastro-esophageal reflux disease without esophagitis; M19.90 Unspecified osteoarthritis, unspecified site; E03.9 Hypothyroidism, unspecified; F41.9 Anxiety disorder, unspecified; Z85.828 Personal history of other malignant neoplasm of skin; Z79.899 Other long term (current) drug therapy; Z98.890 Other specified postprocedural states; Z88.6 Allergy status to analgesic agent
CPT/HCPCS: 49585; J0690; J0780; J1100; J2405; J2704; J2710; J3010; J3490; A4209; A4364; A4452; A4930; A6402; C1781